=== PATIENT | female | born 2000 | race Caucasian/White ===

== ENCOUNTER 2024-02-17 12:39 | Emergency (ER) | payer OTHER, SELFPAY ==
--- NOTE | ~2024-02-17 | CT_ITS ---
EXAMINATION: CT brain wo con DATE: 02/17/2024 15:12 INDICATION: Dizziness. TECHNIQUE: Computed tomography (CT) of the head was performed without intravenous contrast. The mA wa s adjusted according to patient size. Iterative reconstruction technique was employed. The dose-lengt h product was 529.67 mGy-cm. COMPARISON: None FINDINGS: There is no intracranial hemorrhage, acute infarction, or abnormal intracranial mass lesion . The ventricles are normal in size. There is mild mucosal thickening in the paranasal sinuses. The m astoid air cells are normal. IMPRESSION: 1. Normal brain. Reviewed, dictated and finalized at location A. [employer] IMPRESSION: 1. Normal brain.
[2024-02-17 13:52] VITALS: BP 138/88; PULSE 82; RESP 16; TEMP 36.6; O2SAT 100
--- NOTE | 2024-02-17 13:59 | ED.DIZZY ---
HPI - Dizziness General Chief Complaint: Dizziness <SIMIN Johnson Last Filed: 02/17/24 14:08> Stated Complaint: dizziness <Sadia Valerio PA-C - Last Filed: 02/17/24 14:08> Time Seen by Provider: 02/17/24 14:00 <Sadia Valerio PA-C - Last Filed: 02/17/24 14:08> Focused HPI: Patient is a 23 y/o female who presents to the ED with report of dizziness. Patient reports having persistent dizziness over the past 3 days. States it has been constant. It is worse with movement and sitting upright, but does not resolve fully with rest. States it feels somewhat lightheaded, but more so the room is spinning. Reports having nausea today due to the dizziness with at least 5 episodes of emesis. Has never had symptoms like this before. Denies headache, vision changes, tinnitus, ear pain, congestion, focal weakness/numbness. GENERAL: Well-appearing, obese with BMI of 31.4, and in no acute distress. HEAD: Normocephalic, atraumatic. EYES: PERRL/EOMI, conjunctiva clear. Slight fatiguable nystagmus with looking to the L CHEST: Clear to auscultation. ?No respiratory distress. HEART: Regular rate and rhythm.? NEURO: ?Alert and oriented x3. Strength 5/5 in upper and lower extremities bilaterally. No focal deficits. No pronator drift. Equal drying supervisor strength bilaterally. Patient screened in triage and initial orders placed.? ?Additional care and disposition to be based upon?diagnostic testing and treatment. <Sadia Valerio PA-C - Last Filed: 02/17/24 14:08> Source: patient <ISMIN Johnson Last Filed: 02/17/24 14:08> Mode of arrival: ambulatory <SIMIN Johnson Last Filed: 02/17/24 14:08> Limitations: no limitations <SIMIN Johnson Last Filed: 02/17/24 14:08> History of Present Illness HPI Narrative: Agree with HPI. Dizzy with turning head to the left. Intermittent. <Fernando Garcia MD - Last Filed: 02/17/24 16:00> Related Data Allergies/Adverse Reactions: Allergies Allergy/AdvReac Type Severity Reaction Status Date / Time No Known Allergies Allergy Mild Verified 02/17/24 12:40 <Sadia Valerio PA-C - Last Filed: 02/17/24 14:08> Review of Systems Constitutional: Constitutional: Reports no additional constitutional complaints <Fernando Garcia MD - Last Filed: 02/17/24 16:00> ENT: Reports vertigo, Denies nasal congestion and Denies sore throat <Fernando Garcia MD - Last Filed: 02/17/24 16:00> Cardiovascular: Cardiovascular: Reports no additional cardiovascular complaints <Fernando Garcia MD - Last Filed: 02/17/24 16:00> Respiratory: Respiratory: Reports no additional respiratory complaints <Fernando Garcia MD - Last Filed: 02/17/24 16:00> Gastrointestinal: Gastrointestinal: Denies diarrhea, Denies nausea and Reports vomiting <Fernando Garcia MD - Last Filed: 02/17/24 16:00> [facility] Past Medical History Medical History: Medical History (Updated 02/17/24 @ 15:59 by Fernando Garcia MD) Attention Deficit Hyperactivity Disorder (ADHD) <Sadia Valerio PA-C - Last Filed: 02/17/24 14:08> Family History Family History: Family History Father Asthma Hypertension <Sadia Valerio PA-C - Last Filed: 02/17/24 14:08> Social History Social History: Social History Smoking status: Former smoker Second hand tobacco smoke exposure: No Alcohol intake: current Alcohol use details: 4 drink weekends Substance use: never Substance use type: does not use Do You Feel Safe in your Home?: Yes Lack of Transportation: No Lack of Food: Never True Current Housing: I Have Housing Concerned About Future Housing: No Difficulty Paying Gas/Electric Bills: No Difficulty Paying for Meds: No Currently Unemployed: No Education: High School Diploma/GED Difficulty w/ Childcare or Family Care: No Living arrangements: with family Occupation/Education: occupation Additional occupation/education comments: [employer] Gender identity (if verbalized by the patient): Female Sexual Orientation (if Verbalized by the Patient): Straight or Heterosexual Spiritual care concerns: No Agree to blood products: No <Sadia Valerio PA-C - Last Filed: 02/17/24 14:08> Exam Narrative: GENERAL: Well-appearing, well-nourished, and in no acute distress. HEAD: Normocephalic, atraumatic. EYES: PERRL and EOMI. Mild left gaze nystagmus. ENT: Mucous membranes moist. TMs normal bilaterally. NECK: Supple. EXTREMITIES: Normal range of motion. No edema. NEURO: Alert and oriented x3. PSYCH: Normal mood and affect. <Fernando Garcia MD - Last Filed: 02/17/24 16:00> Course Course Emergency Course: CBC/CMP unremarkable. Fluids and meclizine with only mild improvement of symptoms. CT without acute findings. Appropriate for discharge home and supportive management. <Fernando Garcia MD - Last Filed: 02/17/24 16:00> Vital Signs Vital signs: Vital Signs Temperature 97.8 F 02/17/24 13:52 Pulse Rate 82 02/17/24 13:52 Respiratory Rate 16 02/17/24 13:52 Blood Pressure 138/88 02/17/24 13:52 Pulse Oximetry 100 02/17/24 13:52 Oxygen Delivery Room Air 02/17/24 13:52 Temperature 97.8 F 02/17/24 13:52 Pulse Rate 82 02/17/24 13:52 Respiratory Rate 16 02/17/24 13:52 Blood Pressure 138/88 02/17/24 13:52 Pulse Oximetry 100 02/17/24 13:52 Oxygen Delivery Room Air 02/17/24 13:52 <Sadia Valerio PA-C - Last Filed: 02/17/24 14:08> Vital Signs Temperature 97.8 F 02/17/24 13:52 Pulse Rate 82 02/17/24 13:52 Respiratory Rate 16 02/17/24 13:52 Blood Pressure 138/88 02/17/24 13:52 Pulse Oximetry 100 02/17/24 13:52 Oxygen Delivery Room Air 02/17/24 13:52 Temperature 97.8 F 02/17/24 13:52 Pulse Rate 82 02/17/24 13:52 Respiratory Rate 16 02/17/24 13:52 Blood Pressure 138/88 02/17/24 13:52 Pulse Oximetry 100 02/17/24 13:52 Oxygen Delivery Room Air 02/17/24 13:52 <Fernando Garcia MD - Last Filed: 02/17/24 16:00> MDM - Dizziness MDM Narrative Medical decision making narrative: MSE by LORETTA in triage. <Sadia Valerio PA-C - Last Filed: 02/17/24 14:08> Lab Data Result diagrams: 02/17/24 15:02 02/17/24 15:02 <Sadia Valerio PA-C - Last Filed: 02/17/24 14:08> Labs: Lab Results 02/17/24 02/17/24 Range/Units 15:02 15:03 WBC 10.5 H (4.5-10.0) K/mm3 RBC 4.78 (4.2-5.4) M/mm3 Hgb 14.8 (12.0-15.0) g/dL Hct 43.9 (37.0-47.0) % MCV 91.8 (80-100) fl MCH 31.0 (26-34) pg MCHC 33.7 (32-36) g/dl RDW 12.3 (11.5-14.5) % Plt Count 233 (150-375) k/mm3 MPV 10.1 (7.4-10.4) fl Immature Gran % (Auto) 0.3 (0-0.5) % Neut % (Auto) 83.0 H (45.5-73.1) % Lymph % (Auto) 11.2 L (18.3-44.2) % Barrow % (Auto) 4.4 (2.6-8.5) % Eos % (Auto) 0.7 (0-4.4) % Baso % (Auto) 0.4 (0.2-1.2) % Lymph # (Auto) 1.17 (0.9-3.2) K/mm3 Barrow # (Auto) 0.5 (0.1-0.6) K/mm3 Eos # (Auto) 0.1 (0-0.3) K/mm3 Baso # (Auto) 0.0 (0.0-0.1) K/mm3 Abs Immat Gran (auto) 0.03 (0.00-0.031) K/mm3 Absolute Neuts (auto) 8.7 H (1.3-6.7) K/mm3 Absolute Nucleated RBC 0.000 (0.0-0.012) K/mm3 Nucleated RBC % 0.0 (0.0-0.2) % Sodium 137 (137-145) mmol/L Potassium 4.4 (3.4-5.0) mmol/L Chloride 110 H (98-107) mmol/L Carbon Dioxide 21 L (22-30) mmol/L Anion Gap 6 (4-12) mmol/L BUN 9 (7-17) mg/dL Creatinine 0.60 L (0.7-1.0) mg/dL Estim Creat Clear Calc 122 ml/min Estimated GFR > 60 (59 - ) Glucose 91 (65-110) mg/dL Calcium 9.2 (8.4-10.2) mg/dL Magnesium 2.1 (1.6-2.3) mg/dL Total Bilirubin 1.1 (0.2-1.3) mg/dL AST 26 (14-36) U/L ALT 19 (6-35) U/L Alkaline Phosphatase 61 (38-126) U/L Total Protein 9.0 H (6.3-8.2) g/dL Albumin 4.9 (3.5-5.1) g/dL Urine Color Yellow (Yellow) Urine Appearance Clear (Clear) Urine pH 7.0 (5.0-9.0) Ur Specific [place] 1.021 (1.001-1.035) Urine Protein Negative (Negative) mg/dL Urine Glucose (UA) Negative (Negative) mg/dL Urine Ketones 2+ H (Negative) mg/dL Ur Blood (Man) Negative (Negative) Urine Nitrate Negative (Negative) Urine Bilirubin Negative (Negative) Urine Urobilinogen 0.2 (<2.0) mg/dL Add Ur Microanalysis Reviewed Leukocyte Esterase Rfl 1+ H (Negative) KAYE/UL Urine RBC 3-5 H (0-2) /hpf Urine WBC 0-5 (0-3) /hpf Ur Squamous Epith Cells Few (Few) /hpf Urine Bacteria 1+ H /hpf Urine Casts 0-2 Urine Mucus Present /lpf POC Urine HCG, Qual Negative (Negative) <Sadia Valerio PA-C - Last Filed: 02/17/24 14:08> Lab Results 02/17/24 02/17/24 Range/Units 15:02 15:03 WBC 10.5 H (4.5-10.0) K/mm3 RBC 4.78 (4.2-5.4) M/mm3 Hgb 14.8 (12.0-15.0) g/dL Hct 43.9 (37.0-47.0) % MCV 91.8 (80-100) fl MCH 31.0 (26-34) pg MCHC 33.7 (32-36) g/dl RDW 12.3 (11.5-14.5) % Plt Count 233 (150-375) k/mm3 MPV 10.1 (7.4-10.4) fl Immature Gran % (Auto) 0.3 (0-0.5) % Neut % (Auto) 83.0 H (45.5-73.1) % Lymph % (Auto) 11.2 L (18.3-44.2) % Barrow % (Auto) 4.4 (2.6-8.5) % Eos % (Auto) 0.7 (0-4.4) % Baso % (Auto) 0.4 (0.2-1.2) % Lymph # (Auto) 1.17 (0.9-3.2) K/mm3 Barrow # (Auto) 0.5 (0.1-0.6) K/mm3 Eos # (Auto) 0.1 (0-0.3) K/mm3 Baso # (Auto) 0.0 (0.0-0.1) K/mm3 Abs Immat Gran (auto) 0.03 (0.00-0.031) K/mm3 Absolute Neuts (auto) 8.7 H (1.3-6.7) K/mm3 Absolute Nucleated RBC 0.000 (0.0-0.012) K/mm3 Nucleated RBC % 0.0 (0.0-0.2) % Sodium 137 (137-145) mmol/L Potassium 4.4 (3.4-5.0) mmol/L Chloride 110 H (98-107) mmol/L Carbon Dioxide 21 L (22-30) mmol/L Anion Gap 6 (4-12) mmol/L BUN 9 (7-17) mg/dL Creatinine 0.60 L (0.7-1.0) mg/dL Estim Creat Clear Calc 122 ml/min Estimated GFR > 60 (59 - ) Glucose 91 (65-110) mg/dL Calcium 9.2 (8.4-10.2) mg/dL Magnesium 2.1 (1.6-2.3) mg/dL Total Bilirubin 1.1 (0.2-1.3) mg/dL AST 26 (14-36) U/L ALT 19 (6-35) U/L Alkaline Phosphatase 61 (38-126) U/L Total Protein 9.0 H (6.3-8.2) g/dL Albumin 4.9 (3.5-5.1) g/dL Urine Color Yellow (Yellow) Urine Appearance Clear (Clear) Urine pH 7.0 (5.0-9.0) Ur Specific [place] 1.021 (1.001-1.035) Urine Protein Negative (Negative) mg/dL Urine Glucose (UA) Negative (Negative) mg/dL Urine Ketones 2+ H (Negative) mg/dL Ur Blood (Man) Negative (Negative) Urine Nitrate Negative (Negative) Urine Bilirubin Negative (Negative) Urine Urobilinogen 0.2 (<2.0) mg/dL Add Ur Microanalysis Reviewed Leukocyte Esterase Rfl 1+ H (Negative) KAYE/UL Urine RBC 3-5 H (0-2) /hpf Urine WBC 0-5 (0-3) /hpf Ur Squamous Epith Cells Few (Few) /hpf Urine Bacteria 1+ H /hpf Urine Casts 0-2 Urine Mucus Present /lpf POC Urine HCG, Qual Negative (Negative) <Fernando Garcia MD - Last Filed: 02/17/24 16:00> Imaging Data Radiologist's impression: ITS Impressions Head CT 02/17/24 15:12 IMPRESSION: 1. Normal brain. <Fernando Garcia MD - Last Filed: 02/17/24 16:00> Discharge Plan Discharge Clinical Impression: Vertigo <Sadia N. Gaudreault, PA-C - Last Filed: 02/17/24 14:08> Patient Disposition: Home, Self-Care <SIMIN Johnson Last Filed: 02/17/24 14:08> Condition: Stable <SIMIN Johnson Last Filed: 02/17/24 14:08> Instructions: Vertigo (ED) <SIMIN Johnson Last Filed: 02/17/24 14:08> Additional Instructions: Return ER if you have chest pain shortness of breath, you have new focal weakness in arm or leg, youj cannot keep down food /water / medication, or you have additional concerns. <SIMIN Johnson Last Filed: 02/17/24 14:08> Patient Language: Armenian <SIMIN Johnson Last Filed: 02/17/24 14:08> Prescriptions: New meclizine 12.5 mg tablet 12.5 mg PO TID PRN (Reason: dizziness) Qty: 14 0RF ondansetron 4 mg tablet,disintegrating 4 mg PO Q6H PRN (Reason: nausea and vomiting) Qty: 10 0RF No Action Contrave 8-90 mg tablet extended release 2 tablet PO BID Qty: 120 0RF Rx Instructions: Take 2 tabs twice per day dextroamphetamine-amphetamine [Adderall XR] 10 mg capsule,extended release 24hr 10 mg PO DAILY Qty: 30 0RF <Sadia Valerio PA-C - Last Filed: 02/17/24 14:08> Follow-up/Referrals: Katharine Kim MD [Primary Care Provider] - 1 Week <SIMIN Johnson Last Filed: 02/17/24 14:08>
[2024-02-17] MEDS: MECLIZINE HCL 25 MG TABLET PO (15:00)
[2024-02-17] MEDS: ONDANSETRON INJ 4 MG/2 ML VIAL IV PUSH (15:01)
[2024-02-17 15:05] LABS: BEDSIDEPREGUCG Negative (Negative)
[2024-02-17 15:10] LABS: Basophils Percent Auto 0.4 % (0.2-1.2); Eosinophils Absolute Auto 0.1 K/mm3 (0-0.3); Eosinophils Percent Auto 0.7 % (0-4.4); Hematocrit 43.9 % (37.0-47.0); Hemoglobin 14.8 g/dL (12.0-15.0); Immature Granulocyte Absolute 0.03 K/mm3 (0.00-0.031); Immature Granulocyte Percent A 0.3 % (0-0.5); Lymphocytes Absolute Auto 1.17 K/mm3 (0.9-3.2); Lymphocytes Percent Auto 11.2 % (18.3-44.2); Mean Corpuscular HGB Conc 33.7 g/dl (32-36); Mean Corpuscular Volume 91.8 fl (80-100); Mean Platelet Volume 10.1 fl (7.4-10.4); Monocytes Absolute Auto 0.5 K/mm3 (0.1-0.6); Monocytes Percent Auto 4.4 % (2.6-8.5); Neutrophils Absolute Auto 8.7 K/mm3 (1.3-6.7); Platelet Count Result 233 k/mm3 (150-375); Red Blood Count 4.78 M/mm3 (4.2-5.4); Red Cell Distribution Width 12.3 % (11.5-14.5); White Blood Count 10.5 K/mm3 (4.5-10.0)
[2024-02-17] MEDS: SODIUM CHLORIDE 0.9% IV 1,000 ML 999 ML IV CONT (15:21)
[2024-02-17 15:24] LABS: Add Urine Microscopic? YES; Appearance Urine Clear (Clear); Bacteria Urine 1+ /hpf; Bilirubin Urine Negative (Negative); Blood Urine Negative (Negative); Color Urine Yellow (Yellow); Glucose Urine UA Negative (Negative); Ketones Urine 2+ mg/dL (Negative); Leukocyte Esterase Ur 1+ LEU/UL (Negative); Mucus Urine Present /lpf; Need Manual Microscopic Reviewed; Nitrate Urine Negative (Negative); Non Pathogenic Casts 0-2; Protein Urine Negative (Negative); Specific Grav Ur 1.021 (1.001-1.035); Squamous Epithelial Cell Urine Few /hpf (Few); Urobilinogen Urine 0.2 mg/dL (<2.0); WBC Urine 0-5 /hpf (0-3)
[2024-02-17 15:34] LABS: Alanine Aminotransferase 19 U/L (6-35); Albumin Level 4.9 g/dL (3.5-5.1); Alkaline Phosphatase 61 U/L (38-126); Anion Gap 6 mmol/L (4-12); Aspartate Amino Transferase 26 U/L (14-36); Bilirubin,Total 1.1 mg/dL (0.2-1.3); Blood Urea Nitrogen 9 mg/dL (7-17); Calcium 9.2 mg/dL (8.4-10.2); Carbon Dioxide 21 mmol/L (22-30); Chloride 110 mmol/L (98-107); Estimated CRCL calculation 122 ml/min; Estimated Glomerular Filt Rate > 60; Glucose 91 mg/dL (65-110); Magnesium 2.1 mg/dL (1.6-2.3); Potassium 4.4 mmol/L (3.4-5.0); Sodium 137 mmol/L (137-145)
== END 2024-02-17 16:35 | disposition home or self-care (01) ==
PROVIDERS: Physician Assistant; Emergency Provider Emergency Medicine; PCP Family Medicine
DX: R42 Dizziness and giddiness (principal); F90.9 Attention-deficit hyperactivity disorder, unspecified type; Z79.899 Other long term (current) drug therapy
CPT/HCPCS: 36415; 70450; 80053; 81001; 81025; 83735; 85025; 87086; 96361; 96374; 99284; A9270; J2405; J7030